=== PATIENT | female | born 1975 | race Caucasian/White ===

== ENCOUNTER 2019-09-23 09:58 | Outpatient (CLI) | payer OTHER ==
--- NOTE | 2019-09-23 13:40 | CT ---
CT Appendix Protocol HISTORY: Right lower quadrant abdominal pain COMPARISON: None. FINDINGS: The lung bases are clear. The liver, spleen, pancreas, adrenal glands and kidneys are luigi l. No calcified gallstones are seen. No free air, free fluid or lymphadenopathy seen in the abdomen or pelvis. A normal-appearing appendix is present. Uterus and ovaries are visualized. The small bowel loops are not abnormally dilated. IMPRESSION: No evidence of acute process.
== END 2019-09-23 09:59 | disposition home or self-care (01) ==
LOC: SCSULT 09:58 → SCSCT 09:59
PROVIDERS: ATTEND Chiropractor
DX: R10.31 Right lower quadrant pain (principal); K35.80 Unspecified acute appendicitis
CPT/HCPCS: 74177